=== PATIENT | female | born 1990 | race African-American/Black ===

== ENCOUNTER 2019-04-29 10:59 | Day surgery (SDC) | payer MEDICAID, OTHER ==
[~2019-04-29] VITALS: Ht 160 cm; Wt 65.9 kg
[2019-04-29 12:07] LABS: BASO % 0.5 % (0.0-1.0); EOS # 0.1 10^3/uL (0.0-0.50); EOS % 1.5 % (0.0-3.0); HEMATOCRIT 38.6 % (36.0-47.0); HEMOGLOBIN 12.7 g/dl (12.0-15.5); LYMPH # 1.7 10^3/uL (1.5-6.5); LYMPH % 20.3 % (24.0-44.0); MEAN CORPUSCULAR HEMOGLOBIN 31.9 pg (27.0-33.0); MEAN CORPUSCULAR HGB CONC 32.9 g/dl (32.0-36.5); MONO # 0.5 10^3/uL (0.0-0.8); MONO % 5.8 % (0.0-5.0); NEUTROPHILS # 6.1 10^3/uL (1.8-7.7); NEUTROPHILS % 71.5 % (36.0-66.0); PLATELET COUNT, AUTOMATED 180 10^3/uL (150-450); RED BLOOD COUNT 3.98 10^6/uL (4.00-5.40); WHITE BLOOD COUNT 8.5 10^3/uL (4.0-10.0)
--- NOTE | 2019-04-29 12:51 | REP ---
Clinical: Vaginal bleeding for viability. Technique: Transabdominal first trimester obstetrical ultrasound with color Doppler evaluation. Findings: Ultrasound examination demonstrates intrauterine with crown rump length of 4.6 cm corresponding to 11 weeks 3 days gestational age. No cardiac activity is appreciated and findings are compatible with demise. A moderate subchorionic hemorrhage is also noted measuring approximately 4.9 x 4.2 x 2.9 cm. Bilateral maternal ovaries are normal in appearance and vascularity without torsion. Impression: Findings compatible with demise at 11 weeks 3 days. Electronically Signed by Gabe Newton MD 04/29/2019 12:42 P
[2019-04-29 12:55] LABS: BLOOD UREA NITROGEN 8 MG/DL (7-18); CALCIUM LEVEL 8.9 MG/DL (8.5-10.1); CARBON DIOXIDE LEVEL 28 MEQ/L (21-32); CHLORIDE LEVEL 105 MEQ/L (98-107); CREATININE FOR GFR 0.64 MG/DL (0.55-1.30); GLOMERULAR FILTRATION RATE > 60.0 (>60); GLUCOSE, FASTING 73 MG/DL (70-100); HCG, SERUM QUANTITATIVE 75001 MIU/ML; POTASSIUM SERUM 3.8 MEQ/L (3.5-5.1); SODIUM LEVEL 141 MEQ/L (136-145)
[2019-04-29] MEDS ORDERED: RHOGAM 300 MCG (1500 IU) INJ (J2790) IM ONE (13:30)
[2019-04-29] MEDS ORDERED: ACET-897 PO (14:04)
[2019-04-29] MEDS ORDERED: fentaNYL 100 MCG/2 ML INJECTION (J3010) As Ordered ONE ×2 (14:48→18:15)
[2019-04-29] MEDS ORDERED: PROPOFOL 200 MG/20 ML VIAL As Ordered ONE (14:49)
[2019-04-29] MEDS ORDERED: MIDAZOLAM INJ 2 MG/2 ML VIAL (J2250) As Ordered ONE (14:49)
[2019-04-29] MEDS ORDERED: LIDOCAINE 2% INJ 100 MG/5 ML SDV (FOR ANES.) As Ordered ONE (14:49)
[2019-04-29] MEDS ORDERED: dexameTHASONE 4 MG/ML 1ML VIAL (J1100) As Ordered ONE (16:14)
[2019-04-29] MEDS ORDERED: ONDANSETRON 4MG/2ML VIAL (J2405) As Ordered ONE ×2 (16:15→18:15)
[2019-04-29] MEDS ORDERED: DOXYCYCLINE HYCLATE 100 MG/10 ML VIAL As Ordered ONE (17:13)
[2019-04-29] MEDS ORDERED: SILVER NITRATE APPLICATOR As Ordered ONE (17:54)
[2019-04-29] MEDS ORDERED: KETOROLAC 60 MG/2 ML VIAL (J1885) As Ordered ONE (17:54)
[2019-04-29] MEDS ORDERED: ACETAMINOPHEN 1000MG 100ML IV BTL (OFIRMEV) (J0131 PER 10MG) As Ordered ONE (17:54)
[2019-04-29] MEDS ORDERED: IBUP1TAB7 PO (18:04)
[2019-04-29] MEDS ORDERED: OXYC1TAB23 PO ×2 (18:05→18:06)
[2019-04-29] MEDS ORDERED: ZOFR4TAB16 PO (18:07)
[2019-04-29] MEDS: fentaNYL 100 MCG/2 ML INJECTION (J3010) IV PRN ×4 (18:15→18:30)
[2019-04-29] MEDS ORDERED: NORCO, ANEXSIA 5/325MG TABLET (HYDROcodone/ACETAMINOPHEN) As Ordered ONE (18:15)
[2019-04-29] MEDS ORDERED: ONDANSETRON 4MG/2ML VIAL (J2405) IV PRN (18:30)
[2019-04-29] MEDS ORDERED: LR 1,000 ML IV SCH ×2 (18:30→19:00)
[2019-04-29] MEDS ORDERED: NORCO, ANEXSIA 5/325MG TABLET (HYDROcodone/ACETAMINOPHEN) PO PRN (18:30)
[2019-04-29 18:50] VITALS: BP 109/63
[2019-04-29] MEDS ORDERED: DOXYCYCLINE HYCLATE 100 MG TAB PO ONE (19:00)
[2019-04-29 19:25] VITALS: BP 108/58
[2019-04-29 19:50] VITALS: BP 104/55
[2019-04-29 20:50] VITALS: BP 96/51
[2019-04-29] MEDS ORDERED: PERCOCET 5MG/325MG TAB PO ONE (21:00)
[2019-04-29 21:50] VITALS: BP 104/51
--- NOTE | 2019-04-30 10:08 | RO ---
DATE OF PROCEDURE: 04/29/2019 PREOPERATIVE DIAGNOSIS: Missed /first trimester miscarriage at 11 weeks gestation. POSTOPERATIVE DIAGNOSIS: Missed /first trimester miscarriage at 11 weeks gestation. PROCEDURE PERFORMED: Suction dilatation and curettage (D C). FINDINGS: Uterus sounded to 10 cm. Tissue obtained was grossly consistent with products of conception. SURGEON: Dr. Ventura Perla DO FACOG FREIGHT DELIVERY DRIVER: None. ANESTHESIA: General via laryngeal mask airway (LMA). SPECIMENS SENT TO PATHOLOGY: Products of conception/intrauterine tissue. ESTIMATED BLOOD LOSS: 300 mL. FLUIDS REPLACED: 700 mL lactated Ringer's. DRAINS: In-and-out catheter 100 mL. COMPLICATIONS: None. PREOPERATIVE ANTIBIOTICS: Doxycycline 100 mg IV times one. INDICATION: The patient is a 28-year-old (G) 6, para (P) 3 1-1-3. She was admitted at 11 weeks gestation with a diagnosis of a spontaneous . Options were reviewed for treatment and she elected to proceed with surgical management via suction D&C. PROCEDURE: The patient was counseled and consented on the risks, benefits, indications and alternatives of the procedure. Informed consent was obtained. She was taken to the operating room with an IV running, placed on operating table in the dorsal supine position. General anesthesia was administered and the airway secured without any difficulty. She was placed in the high lithotomy position. She was prepared and draped in a normal sterile fashion. A time-out was performed per protocol. The bladder was drained with a sterile in-and-out catheter. A sterile speculum placed with good visualization of the cervix. The anterior lip of the cervix was grasped with single-tooth tenaculum and downward traction was applied. The cervix was sequentially dilated with Billy dilators up to a #20. The size 10 curved back curette was placed transcervical into the intrauterine cavity and suction was applied. Multiple passes of the Vacurette were performed until minimal blood and tissue return. Upon minimal blood and tissue return the Vacurette was removed. A sharp curettage was performed throughout the intrauterine cavity until gritty texture was noted throughout the cavity. The sharp curette was removed. The Vacurette was placed transcervically into the intrauterine cavity for one additional pass with minimal blood and tissue return. The single-tooth tenaculum was removed. Tenaculum sites were cauterized silver nitrate. Minimal bleeding from the cervical os was noted. The uterine fundus was noted be firm upon bimanual massage, and minimal bleeding from the cervical os was noted. The sterile speculum was removed. All instruments were removed from the vagina. Sponge, lap, needle, instrument counts were correct per protocol. The patient was transferred to post-anesthesia care unit (PACU) in good and stable condition. YOGI
== END 2019-04-29 22:45 | disposition home or self-care (01) ==
LOC: M ED 10:59 → M SDC 16:45 → M PED 18:45 → M SDC 22:45
PROVIDERS: ATTEND Obstetrics & Gynecology
DX: O02.1 Missed abortion (principal)
CPT/HCPCS: 36415; 76801; 80048; 81001; 84702; 85025; 86850; 86901; 88305; 96372; 99284; J0131; J1100; J1885; J2250; J2405; J2790; J3010

== ENCOUNTER 2019-05-07 18:47 | Emergency (ER) | payer OTHER ==
[~2019-05-07] VITALS: Ht 160 cm; Wt 65.9 kg
[~2019-05-07 18:47] MED LIST: ACET-897 PO; IBUP1TAB7 PO; OXYC1TAB23 PO; ZOFR4TAB16 PO
[2019-05-07] MEDS ORDERED: MORPHINE 2 MG/ML 1ML SYRINGE (J2270) IV ONE (19:45)
[2019-05-07] MEDS ORDERED: ONDANSETRON 4MG/2ML VIAL (J2405) IV ONE (19:45)
[2019-05-07] MEDS ORDERED: NS 1,000 ML IV ONE (19:45)
[2019-05-07 20:11] LABS: HEMATOCRIT 30.8 % (36.0-47.0); MEAN CORPUSCULAR HEMOGLOBIN 32.4 pg (27.0-33.0); MEAN CORPUSCULAR HGB CONC 32.5 g/dl (32.0-36.5); MEAN CORPUSCULAR VOLUME 99.7 fl (80.0-96.0); PLATELET COUNT, AUTOMATED 302 10^3/uL (150-450); RED BLOOD COUNT 3.09 10^6/uL (4.00-5.40)
--- NOTE | 2019-05-07 22:02 | REPVR ---
EXAM: US Pelvis Complete, Transabdominal EXAM DATE/TIME: 05/07/2019 8:23 PM CLINICAL HISTORY: 28 years old, female; Signs and symptoms; Menstruation abnormalities; Excessive menstruation; Other: Post d&c; Prior surgery; Surgery date: 3-7 days post-operative; Additional info: RO retained products of conception TECHNIQUE: Imaging protocol: Real-time transabdominal pelvic ultrasound with image documentation. Complete exam. COMPARISON: No relevant prior studies available. FINDINGS: Uterus/cervix: Uterus measures 11.1 x 6.4 with 7.3 cm. Endometrial echo complex demonstrates mixed fluid and solid non-echogenic components measuring 27.8 cm most consistent with a post procedural hematoma. Right adnexa: Right ovary measures 3.5 x 2.7 x 2.8 cm. Resistive index 0.68. Left adnexa: Left ovary measures 3 x 2.3 x 2.8 cm. Resistive index 0.6. Free fluid: None. Bladder: Bladder unremarkable. IMPRESSION: Endometrial echo complex demonstrates mixed fluid and solid non-echogenic components measuring 27.8 cm most consistent with a post procedural hematoma. Although not absolutely excluded retained products of conception are considered unlikely. Followup ultrasound recommended to document resolution of the hematoma. Electronically signed by: Nolan Jordan On 05/07/2019 22:02:05 PM
[2019-05-07] MEDS ORDERED: PERCOCET 5MG/325MG TAB PO ONE (22:30)
[2019-05-07] MEDS ORDERED: PERC5TAB12 PO (22:54)
[2019-05-07] MEDS ORDERED: OXYCODONE/APAP 5MG/325MG(BULK FOR ED) 1 TABLET PO ONE (23:00)
[2019-05-07 23:15] VITALS: BP 98/53
--- NOTE | 2019-05-08 13:13 | ED PDOC ---
Post-Departure Follow-Up dr [email or web address] faxed formal report of pelvic us for fu Nima Cleary MD May 08, 2019 13:13
== END 2019-05-07 23:21 | disposition home or self-care (01) ==
LOC: M ED 18:47
DX: N99.820 Postprocedural hemorrhage of a genitourinary system organ or structure following a genitourinary system procedure (principal); I10 Essential (primary) hypertension; F17.210 Nicotine dependence, cigarettes, uncomplicated
CPT/HCPCS: 76856; 80047; 85027; 86850; 86870; 86900; 86901; 93976; 96361; 96374; 96375; 99284; J2270; J2405

== ENCOUNTER → 2019-06-19 | Outpatient (REF) | payer OTHER ==
[~2019-06-19] MED LIST changes: +NORC1TAB7 PO; +PENI500T PO; +PERC5TAB12 PO
== END ==
LOC: M LAB REF 17:09
PROVIDERS: ATTEND Obstetrics & Gynecology
DX: Z12.4 Encounter for screening for malignant neoplasm of cervix (principal); R85.611 Atypical squamous cells cannot exclude high grade squamous intraepithelial lesion on cytologic smear of anus (ASC-H); R87.610 Atypical squamous cells of undetermined significance on cytologic smear of cervix (ASC-US)

== ENCOUNTER 2019-06-27 21:22 | Emergency (ER) | payer OTHER ==
[~2019-06-27] VITALS: Ht 157.5 cm; Wt 65.9 kg
[2019-06-27 21:22] VITALS: BP 138/87
[~2019-06-27 21:22] MED LIST changes: -NORC1TAB7 PO; -PENI500T PO
[2019-06-27] MEDS ORDERED: NORC1TAB7 PO (22:04)
[2019-06-27] MEDS ORDERED: PENI500T PO (22:04)
[2019-06-27] MEDS ORDERED: PENICILLIN V POTASSIUM 500 MG TAB PO ONE (22:15)
[2019-06-27] MEDS ORDERED: NORCO 5/325MG TABLET (BULK FOR ED) PO ONE (22:15)
== END 2019-06-27 22:28 | disposition home or self-care (01) ==
LOC: M ED 21:22
DX: K02.9 Dental caries, unspecified (principal); K08.89 Other specified disorders of teeth and supporting structures; Z72.0 Tobacco use

== ENCOUNTER → 2019-08-06 | Outpatient (REF) | payer OTHER ==
[~2019-08-06] MED LIST changes: +NORC1TAB7 PO; +PENI500T PO
== END ==
LOC: M LAB REF 19:30
PROVIDERS: ATTEND Obstetrics & Gynecology
DX: R87.613 High grade squamous intraepithelial lesion on cytologic smear of cervix (HGSIL) (principal)

== ENCOUNTER 2019-08-19 02:25 | Emergency (ER) | payer OTHER ==
[~2019-08-19] VITALS: Ht 160 cm; Wt 65.9 kg
[2019-08-19] MEDS ORDERED: DEPO150I12 IM (02:42)
[2019-08-19 05:31] VITALS: BP 133/95
[2019-08-19] MEDS ORDERED: LIDOCAINE 2% MDV 20 ML VIAL SC ONE (06:00)
[2019-08-19] MEDS ORDERED: ACETAMINOPHEN 500 MG TAB PO ONE (06:15)
== END 2019-08-19 06:54 | disposition home or self-care (01) ==
LOC: M ED 02:25
DX: S01.81XA Laceration without foreign body of other part of head, initial encounter (principal); W25.XXXA Contact with sharp glass, initial encounter; Y92.59 Other trade areas as the place of occurrence of the external cause; Z79.3 Long term (current) use of hormonal contraceptives

== ENCOUNTER 2019-08-25 02:49 | Emergency (ER) | payer OTHER ==
[~2019-08-25 02:49] MED LIST changes: +DEPO150I12 IM
[2019-08-25 05:36] VITALS: BP 132/86
== END 2019-08-25 06:20 | disposition home or self-care (01) ==
LOC: M ED 02:49
DX: S05.01XA Injury of conjunctiva and corneal abrasion without foreign body, right eye, initial encounter (principal); S05.02XA Injury of conjunctiva and corneal abrasion without foreign body, left eye, initial encounter; T59.3X3A Toxic effect of lacrimogenic gas, assault, initial encounter; Y35.893A Legal intervention involving other specified means, suspect injured, initial encounter; Y93.02 Activity, running; Z79.899 Other long term (current) drug therapy